=== PATIENT | male | born 1945 | race Caucasian/White ===

== ENCOUNTER → 2016-10-28 | Outpatient (CLI) | payer MEDICARE, OTHER | LOC: RT 14:14 | PROVIDERS: ATTEND Nurse Practitioner Family | DX: J43.9 Emphysema, unspecified (principal); J61 Pneumoconiosis due to asbestos and other mineral fibers; R06.00 Dyspnea, unspecified; J30.2 Other seasonal allergic rhinitis; Z87.891 Personal history of nicotine dependence ==

== ENCOUNTER → 2017-08-29 | Outpatient (CLI) | payer MEDICARE, OTHER ==
--- NOTE | 2017-08-29 13:55 | Diagnostic Imaging Report ---
PROCEDURE: CT chest without contrast. TECHNIQUE: Multiple contiguous axial images were obtained through the chest without the use of intravenous contrast. INDICATION: Cough with productive sputum x1.5 month. FINDINGS: Median sternotomy changes are noted. The lungs are well aerated. There is mild interstitial prominence noted, predominantly in the lower lobes with mild basilar dependent atelectasis. There is a cystic bulla in the right upper lobe measuring 2 cm. No evidence of bronchiectasis. There is dense calcific pleural change noted along the diaphragm on the left with adjacent scarring. No acute infiltrates are demonstrated. There is calcification of the aorta without evidence of aneurysm. No mediastinal or hilar adenopathy of pathologic size demonstrated. No blastic or lytic bony lesion. IMPRESSION: 1. There is mild interstitial lung disease. No evidence of bronchiectasis. There is a single cystic bleb in the right upper lobe. 2. There is pleural plaquing along the left hemidiaphragm with dense calcification. No previous studies for comparison. 3. No acute consolidated infiltrates are demonstrated. Dictated by: Dictated on workstation # [id number]
== END ==
LOC: RAD 13:28
PROVIDERS: ATTEND Nurse Practitioner Family
DX: J84.9 Interstitial pulmonary disease, unspecified (principal); J98.4 Other disorders of lung; J92.9 Pleural plaque without asbestos; J30.2 Other seasonal allergic rhinitis; Z87.891 Personal history of nicotine dependence
CPT/HCPCS: 71250

== ENCOUNTER → 2017-10-15 | Outpatient (CLI) | payer MEDICARE, OTHER | LOC: RT 14:38 | PROVIDERS: ATTEND Nurse Practitioner Family | DX: J84.9 Interstitial pulmonary disease, unspecified (principal); R06.02 Shortness of breath; J30.2 Other seasonal allergic rhinitis | CPT/HCPCS: 94761 ==

== ENCOUNTER 2017-11-04 19:58 | Outpatient (CLI) | payer MEDICARE, OTHER | END 2017-11-05 06:40 | disposition home or self-care (01) | LOC: SLEEP 19:58 | PROVIDERS: ATTEND Nurse Practitioner Family | DX: G47.30 Sleep apnea, unspecified (principal); G47.10 Hypersomnia, unspecified | CPT/HCPCS: 95810 ==

== ENCOUNTER 2018-05-25 09:03 | Outpatient (CLI) | payer MEDICARE, OTHER ==
[~2018-05-25] VITALS: Ht 180.3 cm; Wt 90.7 kg
[2018-05-25] MEDS ORDERED: FURO40TA4 PO ×2 (09:37)
[2018-05-25] MEDS ORDERED: OMG1KC PO (09:37)
[2018-05-25] MEDS ORDERED: WARF-48 PO ×2 (09:37)
[2018-05-25] MEDS ORDERED: POTA-51 PO (09:37)
[2018-05-25] MEDS ORDERED: MONT10TA24 PO (09:37)
[2018-05-25] MEDS ORDERED: METO-387 PO (09:37)
[2018-05-25] MEDS ORDERED: ASPI-586 PO (09:37)
[2018-05-25] MEDS ORDERED: MULT-1102 PO (09:37)
[2018-05-25] MEDS ORDERED: CETI10TA17 PO (09:37)
[2018-05-25] MEDS ORDERED: CYAN250010 PO (09:37)
[2018-05-26] MEDS ORDERED: PANT40TA2 PO (16:37)
== END 2018-05-25 09:39 | disposition home or self-care (01) ==
LOC: PREOP 09:03
PROVIDERS: ATTEND Surgery
DX: Z01.818 Encounter for other preprocedural examination (principal)

== ENCOUNTER 2018-05-26 10:22 | Day surgery (SDC) | payer MEDICARE, OTHER ==
[~2018-05-26] VITALS: Ht 180.3 cm; Wt 90.7 kg
[~2018-05-26 10:22] MED LIST: ASPI-586 PO; CETI10TA17 PO; CYAN250010 PO; FURO40TA4 PO; METO-387 PO; MONT10TA24 PO; MULT-1102 PO; OMG1KC PO; POTA-51 PO; WARF-48 PO
[2018-05-26] MEDS ORDERED: LACTATED RINGERS 1,000 ML IV STA (10:32)
[2018-05-26] MEDS ORDERED: LACTATED RINGERS 1,000 ML IV ONE (10:40)
[2018-05-26 11:10] VITALS: BP 125/96
--- NOTE | 2018-05-26 13:43 | Progress Note-Pre Operative ---
Pre-Operative Progress Note H&P Reviewed The H&P was reviewed, patient examined and patient has also had some dark stools. Discussed risks and benefits of having EGD performed and wishes to add this. Date Seen by Provider: May 26, 2018 Time Seen by Provider: 13:43 Date H&P Reviewed: May 26, 2018 Time H&P Reviewed: 13:43 Pre-Operative Diagnosis: melana, + cologuard test REBECA CERVANTES DO May 26, 2018 13:43
[2018-05-26] MEDS ORDERED: HURRICAINE EXT TUBE (BENZOCAINE) ONE (15:20)
[2018-05-26] MEDS ORDERED: PROPOFOL INJECTION 50 ML IV ONE (15:41)
[2018-05-26] MEDS ORDERED: HURRICAINE EXT TUBE (BENZOCAINE) XX ONE (16:00)
--- NOTE | 2018-05-26 16:36 | Progress Note-Post Operative ---
Post-Operative Progess Note Surgeon (s)/Block Press Operator (s) Surgeon REBECA CERVANTES DO Block Press Operator: na Pre-Operative Diagnosis melana, + cologuard test Post-Operative Diagnosis gastritis, small hiatal hernia, sigmoid polyp Procedure & Operative Findings Date of Procedure 05/26/18 Procedure Performed/Findings egd c biopsy, colonoscopy c hot bx polypectomy Anesthesia Type per naval designer Estimated Blood Loss Estimated blood loss (mL): none Specimens/Packing Specimens Removed body stomach and sigmoid colon polyp REBECA CERVANTES DO May 26, 2018 16:36
[2018-05-26] MEDS ORDERED: PANT40TA2 PO (16:37)
--- NOTE | 2018-05-26 16:38 | Discharge Inst-Simple/Standard ---
Discharge Inst-Standard Discharge Medications New, Converted or Re-Newed RX: Transmitted to Pharmacy Patient Instructions/Follow Up Plan of Care/Instructions/FU: 2-[address] Singh's instructions on anticoagulation. Activity as Tolerated: Yes Discharge Diet: Regular Diet REBECA CERVANTES DO May 26, 2018 16:38
[2018-05-26 16:40] VITALS: BP 113/72
[2018-05-26 17:00] VITALS: BP 147/86
[2018-05-26 17:11] VITALS: BP 147/86
--- NOTE | 2018-05-26 20:07 | OPERATIVE REPORT ---
DATE OF SERVICE: 05/26/2018 PREOPERATIVE DIAGNOSIS: Melena and positive Cologuard test. POSTOPERATIVE DIAGNOSES: Gastritis, small hiatal hernia, sigmoid colon polyp. PROCEDURES: EGD with biopsy and colonoscopy with hot biopsy polypectomy. SURGEON: Rebeca Herman DO ANESTHESIA: Per SERVICE AGENT. ESTIMATED BLOOD LOSS: None. COMPLICATIONS: None. INDICATIONS: The patient is a 73-year-old male with some dark stools recently and also with positive Cologuard test. He understands risks and benefits of procedures and wished to proceed with procedures. Consent was signed on the chart. DESCRIPTION OF PROCEDURE: The patient was taken to the endoscopy suite, placed in left lateral recumbent position. Timeout was performed. Scope was inserted in the mouth, down the esophagus, stomach and into the duodenum without difficulty. There are no polyps, masses, or ulcerations within the duodenum. Scope was then slowly retracted back into the stomach, where it was further insufflated. There are no polyps, masses or ulcerations visualized in the antrum. In the body, there was a large area of significant erythema and this area was biopsied, which was fairly friable. Scope was retroflexed just noting a small hiatal hernia. There was no other pathology noted. Scope was returned to its normal position, slowly withdrawn to the distal esophagus, which had normal appearance. No polyps, masses or ulceration. No erythematous changes. Scope was slowly retracted back until completely removed. Digital rectal exam was performed. There were no palpable polyps, masses or ulcerations. Scope was inserted into the rectum and advanced all the way to the cecum with minimal difficulty. There were no polyps, masses or ulcerations within the cecum, ascending, transverse and descending colon. Once in the sigmoid, there is a small polyp, which hot biopsy polypectomy was performed. Scope was continued to be slowly retracted back until the rectum, where it was also retroflexed just noting some hemorrhoids. Scope was returned to its normal position, slowly withdrawn until completely removed, noting no other pathology. The patient tolerated the procedure well without any complications. He was taken to the recovery room in stable condition. RECOMMENDATIONS: The patient will be started on Protonix 40 mg daily. The patient will follow up in the office in two to three weeks to discuss pathology results and see how he is doing at that time. The patient also will need a repeat colonoscopy in 5 years unless he has any issues before then, he should be seen and reevaluated at that time. Job ID: [id number] DocumentID: [id number] Dictated Date: 05/26/2018 16:44:22 Regulatory Consultant Date: 05/26/2018 20:07:33 Dictated By: REBECA HERMAN DO
== END 2018-05-26 17:10 | disposition home or self-care (01) ==
LOC: ENDO 10:22
PROVIDERS: ATTEND Surgery
DX: K63.5 Polyp of colon (principal); K29.50 Unspecified chronic gastritis without bleeding; K44.9 Diaphragmatic hernia without obstruction or gangrene; I48.91 Unspecified atrial fibrillation; I34.0 Nonrheumatic mitral (valve) insufficiency; I73.9 Peripheral vascular disease, unspecified; G47.33 Obstructive sleep apnea (adult) (pediatric); J44.9 Chronic obstructive pulmonary disease, unspecified; Z87.891 Personal history of nicotine dependence; Z79.01 Long term (current) use of anticoagulants; Z79.82 Long term (current) use of aspirin; Z79.899 Other long term (current) drug therapy
CPT/HCPCS: 88305; 88341; 88342

== ENCOUNTER → 2018-09-14 | Outpatient (CLI) | payer MEDICARE, OTHER ==
[~2018-09-14] MED LIST changes: +HOLD METFORMIN - RECEIVED CONTRAST 20 ML VIAL IV SCH; +IOHEXOL 350 MG/ML 150 ML (OMNIPAQUE 350) VIAL IV ONE; +PANT40TA2 PO
[2018-09-14 12:50] LABS: CREATININE SERUM 1.43 MG/DL (0.60-1.30)
[2018-09-14 12:58] LABS: ABG BASE EXCESS 0.1 MMOL/L (-2.5-2.5); ABG OXYGEN SATURATION 96 % (94-100); ABG PCO2 34 MMHG (35-45); ABG PH 7.45 (7.37-7.43); ABG PO2 70 MMHG (79-93)
[2018-09-14 13:00] LABS: ALLENS TEST YES-POS; INSPIRED O2 RA; PATIENT TEMP 95.6; VENTILATOR NO
--- NOTE | 2018-09-14 13:49 | Diagnostic Imaging Report ---
PROCEDURE: CT angiography of the chest with contrast. TECHNIQUE: Multiple contiguous axial images were obtained through the chest after uneventful bolus administration of intravenous contrast. 2D reconstructed CTA MIP acquisitions were also performed. Auto Exposure Controls were utilized during the CT exam to meet ALARA standards for radiation dose reduction. INDICATION: Shortness of air. COMPARISON: Correlation is made with prior noncontrast CT chest from 08/29/2017. FINDINGS: Evaluation of the pulmonary arterial system is without evidence of thromboembolism. No filling defects are seen within central, lobar, or segmental branches. The thoracic aorta is normal in caliber. No dissection is seen. No pericardial fluid is identified. There may be trace pleural fluid on the left. There are also some pleural calcifications along the posterior pleura at the base. No axillary lymphadenopathy is seen. There are some minimally prominent lymph nodes in the mediastinum and subcarinal region as well as bilateral hilar regions, stable. There are changes of median sternotomy. There is some linear scarring in the left lower lobe. No parenchymal mass or nodule is detected. The upper abdomen is unremarkable. IMPRESSION: 1. No evidence of pulmonary embolism or thoracic aortic dissection. 2. 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 There is trace pleural fluid on the left. No parenchymal mass or infiltrate is detected. Dictated by: Dictated on workstation # [id number]
== END ==
LOC: RAD 12:11
PROVIDERS: ATTEND Internal Medicine Critical Care Medicine
DX: J94.8 Other specified pleural conditions (principal); J30.2 Other seasonal allergic rhinitis; G47.33 Obstructive sleep apnea (adult) (pediatric); J84.9 Interstitial pulmonary disease, unspecified; J61 Pneumoconiosis due to asbestos and other mineral fibers; G47.10 Hypersomnia, unspecified; Z87.891 Personal history of nicotine dependence
CPT/HCPCS: 36415; 36600; 71275; 82565; 82805; 84520

== ENCOUNTER → 2018-10-15 | Outpatient (CLI) | payer MEDICARE, OTHER ==
[~2018-10-15] MED LIST changes: -HOLD METFORMIN - RECEIVED CONTRAST 20 ML VIAL IV SCH; -IOHEXOL 350 MG/ML 150 ML (OMNIPAQUE 350) VIAL IV ONE
== END ==
LOC: CARD 10:58
PROVIDERS: ATTEND Internal Medicine Interventional Cardiology
DX: I08.1 Rheumatic disorders of both mitral and tricuspid valves (principal); I48.2 Chronic atrial fibrillation
CPT/HCPCS: 93306

== ENCOUNTER → 2018-12-14 | Outpatient (CLI) | payer MEDICARE, OTHER ==
[~2018-12-14] MED LIST changes: +RT-ALBUTEROL SULF 2.5 MG/3 ML PRE-MIX VIAL INH ONE
== END ==
LOC: RT 08:01
PROVIDERS: ATTEND Nurse Practitioner Family
DX: J61 Pneumoconiosis due to asbestos and other mineral fibers (principal); Z87.891 Personal history of nicotine dependence
CPT/HCPCS: 94060; 94726; 94729

== ENCOUNTER → 2019-03-22 | Outpatient (CLI) | payer MEDICARE, OTHER ==
[~2019-03-22] MED LIST changes: -RT-ALBUTEROL SULF 2.5 MG/3 ML PRE-MIX VIAL INH ONE
== END ==
LOC: CARD 08:19
PROVIDERS: ATTEND Internal Medicine Interventional Cardiology
DX: I08.3 Combined rheumatic disorders of mitral, aortic and tricuspid valves (principal)
CPT/HCPCS: 93306

== ENCOUNTER 2020-08-31 10:52 | Outpatient (RCR) | payer MEDICARE, OTHER ==
[2020-08-24] MEDS: FERRIC CARBOXYMALTOSE INJ 750 MG in NS (IVPB) 250 ML IV SCH (11:08)
[2020-08-24 12:00] VITALS: BP 148/59
[~2020-08-31] VITALS: Ht 180.3 cm; Wt 90.7 kg
[~2020-08-31 10:52] MED LIST changes: -METO-387 PO; -MONT10TA24 PO; +MONT10TA32 PO; +MTP25TSR PO
[2020-08-31] MEDS: FERRIC CARBOXYMALTOSE INJ 750 MG in NS (IVPB) 250 ML IV SCH (11:10)
[2020-08-31 11:30] VITALS: BP 138/84
== END 2020-08-31 11:52 | disposition home or self-care (01) ==
LOC: SDC 10:52
PROVIDERS: ATTEND Nurse Practitioner Family
DX: D50.9 Iron deficiency anemia, unspecified (principal); I48.91 Unspecified atrial fibrillation; I10 Essential (primary) hypertension
CPT/HCPCS: 96365

== ENCOUNTER 2021-04-08 11:06 | Inpatient (IN) | payer MEDICARE, OTHER ==
[~2021-04-08] VITALS: Ht 180 cm; Wt 83.0 kg
[2021-04-08] MEDS ORDERED: PATIENT MAY USE OWN MEDS, ALL PO SCH (11:45)
[2021-04-08] MEDS: NS IV 1000 ML 1,000 ML IV SCH ×2 (11:45→22:44)
[2021-04-08] MEDS ORDERED: ACETAMINOPHEN 325 MG TABLET PO PRN (12:00)
[2021-04-08] MEDS ORDERED: RT-ALBUTEROL SULF 2.5 MG/3 ML PRE-MIX VIAL INH PRN (14:30)
[2021-04-08 16:00] VITALS: BP 138/61
--- NOTE | 2021-04-08 17:40 | History & Physical ---
History of Present Illness History of Present Illness Reason for visit/HPI This is a 75 year old male who is a patient of Dr. Abbott's for whom I am information assistant. 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 He was seen by Dr. Abbott about 6 days ago in the office with worsening shortness of air and weakness. He was found to be in atrial fibrillation with RVR with a heart rate in the 120s. He was started on Cardizem which he reports made him feel better. Three days ago he was seen by his urologist, Dr. Hernández, in [place] and told he was having urinary retention so he was started on self straight catheterizations. He has been using a clean catheter with each straight cath but not gloves. He presented to the emergency room at [facility] today with complaints of weakness. He was found to have a urinary tract infection with possible early infiltrate on CXR. He was given maxipime in the ER at [facility] and a request for transfer to our facility was made. I accepted the patient on behalf of Dr. Abbott and he will be admitted to the medical floor. Date of Admission Apr 08, 2021 at 14:00 Date Seen by a Provider: Apr 08, 2021 Time Seen by a Provider: 17:34 I consulted on this patient on 04/08/21 17:34 Attending Physician Matthieu Baum DO Admitting Physician Leidy Abbott MD Consult Allergies and Home Medications Allergies Coded Allergies: amiodarone (Verified Allergy, Unknown, gi upset, 05/25/18) niacin (Verified Allergy, Unknown, itching, 05/25/18) Patient Home Medication List Home Medication List Reviewed: Yes Aspirin (Aspir 81) 81 Mg Tablet., 81 MG PO DAILY, (Reported) Entered as Reported by: DARA HANSON on 05/25/18936 Cetirizine HCl (Cetirizine HCl) 10 Mg Tablet, 10 MG PO DAILY, (Reported) Entered as Reported by: DARA HANSON on 05/25/18936 Cyanocobalamin (Vitamin B-12) (Vitamin B12) 2,500 Mcg Tablet, 2,500 MCG PO DAILY, (Reported) Entered as Reported by: DARA HANSON on 05/25/18936 Furosemide (Furosemide) 40 Mg Tablet, 40 MG PO DAILY, (Reported) Entered as Reported by: DARA HANSON on 05/25/18936 Furosemide (Furosemide) 40 Mg Tablet, 80 MG PO Sa, (Reported) Entered as Reported by: DARA HANSON on 05/25/18936 Metoprolol Succinate (Metoprolol Succinate) 25 Mg Tab.er.24h, 25 MG PO DAILY, (Reported) Entered as Reported by: DARA HANSON on 05/25/18936 Montelukast Sodium (Montelukast Sodium) 10 Mg Tablet, 10 MG PO HS, (Reported) Entered as Reported by: DARA HANSON on 05/25/18936 Multivit-Min/Folic/Vit K/Lycop (Men's Multivitamin Tablet) 1 Each Tablet, 1 EACH PO DAILY, (Reported) Entered as Reported by: DARA HANSON on 05/25/18936 [place] 3 Polyunsat Fatty Acids (Fish Oil 1,000 mg Capsule) 1,000 Mg Cap, 1,000 MG PO DAILY, (Reported) Entered as Reported by: DARA HANSON on 05/25/18936 Pantoprazole Sodium (Protonix) 40 Mg Tablet.dr, 40 MG PO DAILY Prescribed by: REBECA CERVANTES on 05/26/181636 Potassium Chloride (Potassium Chloride) 20 Meq Tablet.er, 20 MEQ PO DAILY, (Reported) Entered as Reported by: DARA HANSON on 05/25/18936 Warfarin Sodium (Warfarin Sodium) 5 Mg Tablet, 5 MG PO MoTuThFrSa, (Reported) Entered as Reported by: DARA HANSON on 05/25/18936 Warfarin Sodium (Warfarin Sodium) 5 Mg Tablet, 2.5 MG PO SuWe, (Reported) Entered as Reported by: DARA HANSON on 05/25/18936 Past Fhlixro-Tmlsfi-Sbjaoo Hx Patient Social History Tobacco Use?: No Smoking Status: Former Smoker Smokeless Tobacco Frequency: Never a User Use of E-Cig and/or Vaping dev: No Substance use?: No Alcohol Use?: No Additional Alcohol Comments: Hasnt had beer for years Pt feels they are or have been: No Immunizations Up To Date Date of Influenza Vaccine: Mar 16, 2018 Tetanus Booster (TDap): Unknown Date of Pneumonia Vaccine: Mar 16, 2018 Seasonal Allergies Seasonal Allergies: Yes Current Status Advance Directives: No Communicates: Verbally Primary Language: [place] Preferred Spoken Language: [place] Is interpretation needed?: No Sensory deficits: Vision impairment Implanted or Applied Medical D: Other Past Medical History Sleep Apnea, COPD Currently Using CPAP: Yes Peripheral Vascular Cataract Review of Systems Constitutional: weakness EENTM: No see HPI, No no symptoms reported, No ear discharge, No hearing loss, No ear pain, No blurred vision, No double vision, No eye pain, No tearing, No vision loss, No dental problems, No hoarseness, No mouth pain, No mouth swelling, No epistaxis, No nose congestion, No nose pain, No throat pain, No throat swelling, No other Respiratory: cough, dyspnea on exertion, short of breath Cardiovascular: palpitations (atrial fibrillation) Gastrointestinal: No RUQ, No LUQ, No RLQ, No LLQ, No no symptoms reported, No see HPI, No abdominal pain, No constipation, No diarrhea, No dysphagia, No hematemesis, No heartburn, No jaundice, No loss of appetite, No melena, No nausea, No vomiting, No other Genitourinary: decreased output, hesitancy Musculoskeletal: muscle weakness Skin: No no symptoms reported, No see HPI, No change in color, No change in hair/nails, No dryness, No hx of skin cancer, No lesions, No lumps, No pruritus, No rash, No other Psychiatric/Neurological: Weakness Physical Exam Vital Signs Vital Signs - First Documented 04/08/21 04/08/21 15:24 15:44 Pulse 96 O2 Delivery Nasal Cannula O2 Flow Rate 2.00 Capillary Refill : Height, Weight, BMI Height: 5'11.00" Weight: 200lbs. 0.0oz. 90.238298bx; 25.00 BMI Method: General Appearance: No Apparent Distress Neck: Supple Respiratory: Lungs Clear, Decreased Breath Sounds Cardiovascular: Systolic Murmur, Gallop/S4, Irregularly Irregular Gastrointestinal: Normal Bowel Sounds, Non Tender, Soft Rectal: Deferred Back: No CVA Tenderness Extremity: Non Tender, No Calf Tenderness, No Pedal Edema Neurologic/Psychiatric: Alert, Oriented x3 Skin: Warm/Dry Assessment/Plan Assessment and Plan 1. Acute UTI in setting of urinary retention with self-catheterization--admit and will continue with cefepime since patient was given this in ER at [facility] due to both UTI and early pneumonia 2. Early Pneumonia--Cefepime as above 3. COPD with Pulmonary Fibrosis from previous asbestos exposure--started on SVNs with albuterol, will resume advair 4. Acute Respiratory Distress--on oxygen at 2L NC 5. Chronic Atrial Fibrillation with recent RVR--rate controlled, resume home meds and coumadin, monitor PT/INR 6. BPH with Urinary Retention--resume home meds, lucas catheter currently in place Admission Diagnosis Admission Status: Inpatient Order (span 2 midnights) Reason for Inpatient Admission: Will need at least 48hrs of IV abx MATTHIEU BAUM DO Apr 08, 2021 17:40
[2021-04-08] MEDS ORDERED: TIOT18CA2 IH (17:44)
[2021-04-08] MEDS ORDERED: TMSL.4C PO (17:44)
[2021-04-08] MEDS ORDERED: CHOL2400 MC (17:44)
[2021-04-08] MEDS ORDERED: FLUT1DIS26 IH (17:44)
[2021-04-08] MEDS ORDERED: FERR-84 PO (17:44)
[2021-04-08] MEDS ORDERED: FINA5TAB6 PO (17:44)
[2021-04-08] MEDS ORDERED: warFARin 3 MG (COUMADIN) TAB PO SCH (18:00)
[2021-04-08] MEDS: RT-ALBUTEROL SULF 2.5 MG/3 ML PRE-MIX VIAL INH SCH ×2 (18:39→21:14)
[2021-04-08 19:57] VITALS: BP 107/56
[2021-04-08] MEDS: CEFEPIME INJECTION 2,000 MG in WATER (STERILE) FOR INJECTION 20 ML IV SCH (20:18)
[2021-04-08] MEDS ORDERED: MONTELUKAST 10 MG (SINGULAIR) TAB PO SCH (21:00)
[2021-04-08] MEDS ORDERED: RT--FLUTICASONE/SALMETEROL 113-14 (AIRDUO RespiCLICK) IH SCH (21:00)
[2021-04-08] MEDS: TAMSULOSIN 0.4 MG (FLOMAX) CAP PO SCH (21:11)
[2021-04-08] MEDS ORDERED: MONTELUKAST 10 MG (SINGULAIR) TAB PO ONE (21:15)
[2021-04-08 23:30] VITALS: BP 111/62
[2021-04-09 04:00] VITALS: BP 110/61
[2021-04-09] MEDS: RT-ALBUTEROL SULF 2.5 MG/3 ML PRE-MIX VIAL INH SCH ×6 (04:36→21:59)
[2021-04-09] MEDS: NS IV 1000 ML 1,000 ML IV SCH ×2 (06:06→20:10)
[2021-04-09 07:02] LABS: INR 3.5 (0.8-1.4); PROTHROMBIN TIME PATIENT 35.2 SEC (12.2-14.7)
[2021-04-09 07:05] LABS: POTASSIUM 3.9 MMOL/L (3.6-5.0)
[2021-04-09 07:06] LABS: CALCIUM 8.9 MG/DL (8.5-10.1)
[2021-04-09 07:11] LABS: CREATININE SERUM 1.25 MG/DL (0.60-1.30)
[2021-04-09 07:38] VITALS: BP 132/58
[2021-04-09 07:45] LABS: HEMATOCRIT 31 % (40-54); HEMOGLOBIN 9.8 g/dL (13.3-17.7); MEAN CORPUSCULAR HEMOGLOBIN 30 pg (25-34); MEAN CORPUSCULAR HGB CONC 32 g/dL (32-36); MEAN CORPUSCULAR VOLUME 93 fL (80-99); MEAN PLATELET VOLUME 12.5 fL (9.0-12.2); PLATELET COUNT 185 10^3/uL (130-400); WHITE BLOOD COUNT 16.8 10^3/uL (4.3-11.0)
[2021-04-09] MEDS ORDERED: UMECLIDINIUM BROMIDE (INCRUSE ELLIPTA) 7'S IH SCH (08:00)
[2021-04-09] MEDS: TIOTROPIUM BROMIDE (SPIRIVA) 5'S INHALER IH SCH ×2 (08:05→08:15)
[2021-04-09] MEDS: ADVAIR DISKUS 250/50 INHALER IH SCH ×2 (08:05→18:32)
[2021-04-09] MEDS: CEFEPIME INJECTION 2,000 MG in WATER (STERILE) FOR INJECTION 20 ML IV SCH ×2 (08:22→20:10)
[2021-04-09] MEDS: FUROSEMIDE 40 MG (LASIX) TAB PO SCH (08:23)
[2021-04-09] MEDS: dilTIAZem120 MG (CARDIZEM CD) CAP PO SCH (08:23)
[2021-04-09] MEDS: PANTOPRAZOLE 40 MG (PROTONIX) TAB PO SCH (08:23)
[2021-04-09] MEDS: FINASTERIDE (PROSCAR) 5 MG TAB PO SCH (08:23)
[2021-04-09] MEDS: LORATADINE (CLARITIN) 10 MG TAB PO SCH (08:23)
[2021-04-09] MEDS: ASPIRIN E.C. 81 MG (ECOTRIN) TAB PO SCH (08:23)
--- NOTE | 2021-04-09 08:41 | Progress Note ---
Subjective Subjective Date Seen by Provider: Apr 09, 2021 Time Seen by Provider: 08:39 PT IS A 75 Y /O MALE WHO IS KNOWN TO ME FROM CLINIC. HE RECENTLY STARTED STRAIGHT CATHETERIZING, WAS NOT USING GLOVES AND SUBSEQUENTLY DEVELOPED A URINARY TRACT INFECTION. HE WAS IN THE OFFICE LAST WEEK WITH ACUTE DYSPNEA - WAS FOUND TO BE IN RATE UNCONTROLLED ATRIAL FIBRILLATION AND STARTED ON CARDIZEM AFTER CONSULTATION WITH HIS CELL COVERER - DR. PECK Objective Exam Vital Signs Vital Signs Date Time Temp Pulse Resp B/P (MAP) Pulse Ox O2 Delivery O2 Flow Rate FiO2 04/09/21 08:15 Nasal Cannula 2.00 04/09/21 08:05 95 Nasal Cannula 2.00 04/09/21 07:38 37.6 98 20 132/58 (82) 98 Nasal Cannula 2.00 04/09/21 07:00 94 04/09/21 04:00 36.1 76 18 110/61 (77) 93 NIV Bilevel 04/09/21 01:00 90 04/08/21 23:30 36.9 95 20 111/62 (78) 95 NIV Bilevel 04/08/21 21:14 95 Nasal Cannula 2.00 04/08/21 20:45 96 Nasal Cannula 2.00 04/08/21 19:57 38.2 96 20 107/56 (73) 97 Nasal Cannula 2.00 04/08/21 19:00 107 04/08/21 18:39 94 Nasal Cannula 2.00 04/08/21 16:00 37.8 106 24 138/61 (86) 96 Nasal Cannula 2.00 04/08/21 15:44 96 04/08/21 15:24 Nasal Cannula 2.00 I & O 04/09/21 06:59 Intake Total 970 ml Output Total 1100 ml Balance -130 ml General Appearance: No Apparent Distress Neck: Supple Respiratory: Lungs Clear, Decreased Breath Sounds Cardiovascular: Systolic Murmur, Gallop/S4, Irregularly Irregular Gastrointestinal: Normal Bowel Sounds, Non Tender, Soft Rectal: Deferred Back: No CVA Tenderness Extremity: Non Tender, No Calf Tenderness, No Pedal Edema Neurologic/Psychiatric: Alert, Oriented x3 Skin: Warm/Dry Results Lab Laboratory Tests 04/09/21 06:30: White Blood Count 16.8H, Red Blood Count 3.32L, Hemoglobin 9.8L, Hematocrit 31L, Mean Corpuscular Volume 93, Mean Corpuscular Hemoglobin 30, Mean Corpuscular Hemoglobin Concent 32, Red Cell Distribution Width 14.7H, Platelet Count 185, Mean Platelet Volume 12.5H, Sodium Level 136, Potassium Level 3.9, Chloride Level 106, Carbon Dioxide Level 19L, Anion Gap 11, Blood Urea Nitrogen 16, Cre atinine 1.25, Estimat Glomerular Filtration Rate 56, BUN/Creatinine Ratio 13, Glucose Level 115H, Calcium Level 8.9 04/09/21 06:36: Prothrombin Time 35.2H, INR Comment 3.5H RODOLFO VÁZQUEZ MD Apr 09, 2021 08:41
[2021-04-09] MEDS ORDERED: ASPI81TA16 PO (10:02)
[2021-04-09] MEDS ORDERED: VITA-189 PO (11:17)
[2021-04-09] MEDS ORDERED: FURO40TA4 PO (11:17)
[2021-04-09] MEDS ORDERED: POTA-51 PO (11:21)
[2021-04-09] MEDS ORDERED: PANT40TA52 PO (11:26)
[2021-04-09] MEDS ORDERED: FERR-84 PO (11:28)
[2021-04-09] MEDS ORDERED: CHOL10007 PO (11:31)
[2021-04-09] MEDS ORDERED: FINA5TAB6 PO (11:32)
[2021-04-09] MEDS ORDERED: TMSL.4C PO (11:32)
[2021-04-09] MEDS ORDERED: DILT120C85 PO (11:33)
[2021-04-09] MEDS ORDERED: FLUT9.9S NS (11:35)
[2021-04-09] MEDS ORDERED: FLUT1DIS26 IH (11:37)
[2021-04-09] MEDS ORDERED: TIOT18CA2 IH (11:49)
[2021-04-09 12:00] VITALS: BP 124/57
[2021-04-09 15:50] VITALS: BP 116/54
[2021-04-09] MEDS: TAMSULOSIN 0.4 MG (FLOMAX) CAP PO SCH (17:46)
[2021-04-09] MEDS ORDERED: warFARin 3 MG (COUMADIN) TAB PO SCH (18:00)
[2021-04-09 19:55] VITALS: BP 127/58
[2021-04-09] MEDS ORDERED: MONTELUKAST 10 MG (SINGULAIR) TAB PO SCH (21:00)
[2021-04-10] VITALS: BP_SYST 121; BP_SYST 127; BP_DIAS 58; BP_DIAS 60
[2021-04-10] MEDS: RT-ALBUTEROL SULF 2.5 MG/3 ML PRE-MIX VIAL INH SCH ×3 (02:34→10:30)
[2021-04-10 04:07] VITALS: BP 125/65
[2021-04-10 04:57] LABS: HEMATOCRIT 28 % (40-54); HEMOGLOBIN 9.1 g/dL (13.3-17.7); MEAN CORPUSCULAR HEMOGLOBIN 29 pg (25-34); MEAN CORPUSCULAR HGB CONC 32 g/dL (32-36); MEAN CORPUSCULAR VOLUME 90 fL (80-99); PLATELET COUNT 172 10^3/uL (130-400); WHITE BLOOD COUNT 10.3 10^3/uL (4.3-11.0)
[2021-04-10 05:15] LABS: INR 2.7 (0.8-1.4); POTASSIUM 3.6 MMOL/L (3.6-5.0); PROTHROMBIN TIME PATIENT 29.1 SEC (12.2-14.7)
[2021-04-10 05:16] LABS: CALCIUM 8.9 MG/DL (8.5-10.1)
[2021-04-10 05:20] LABS: CREATININE SERUM 1.17 MG/DL (0.60-1.30)
[2021-04-10] MEDS ORDERED: KCL 20 MEQ TAB (K-DUR) PO SCH (07:00)
[2021-04-10] MEDS ORDERED: MULTIVIT W/MINERALS TAB (THERAGRAN M) PO SCH (07:00)
[2021-04-10] MEDS ORDERED: CYANOCOBALAMIN 1,000 MCG (VITAMIN B-12) TABLET PO SCH (07:00)
[2021-04-10] MEDS: ADVAIR DISKUS 250/50 INHALER IH SCH (07:01)
[2021-04-10] MEDS: TIOTROPIUM BROMIDE (SPIRIVA) 5'S INHALER IH SCH (07:01)
[2021-04-10 08:01] VITALS: BP 130/60
[2021-04-10] MEDS: LORATADINE (CLARITIN) 10 MG TAB PO SCH (08:19)
[2021-04-10] MEDS: CEFEPIME INJECTION 2,000 MG in WATER (STERILE) FOR INJECTION 20 ML IV SCH (08:19)
[2021-04-10] MEDS: FUROSEMIDE 40 MG (LASIX) TAB PO SCH (08:19)
[2021-04-10] MEDS: dilTIAZem120 MG (CARDIZEM CD) CAP PO SCH (08:19)
[2021-04-10] MEDS: ASPIRIN E.C. 81 MG (ECOTRIN) TAB PO SCH (08:19)
[2021-04-10] MEDS: PANTOPRAZOLE 40 MG (PROTONIX) TAB PO SCH (08:19)
[2021-04-10] MEDS: FINASTERIDE (PROSCAR) 5 MG TAB PO SCH (08:19)
--- NOTE | 2021-04-10 10:29 | Discharge Summary ---
Diagnosis/Chief Complaint Date of Admission Apr 08, 2021 at 14:00 Date of Discharge Discharge Summary Discharge Physical Examination Allergies: Coded Allergies: amiodarone (Verified Allergy, Unknown, gi upset, 05/25/18) niacin (Verified Allergy, Unknown, itching, 05/25/18) Vitals & I&Os Vital Signs Date Time Temp Pulse Resp B/P (MAP) Pulse Ox O2 Delivery O2 Flow Rate FiO2 04/10/21 08:25 94 Room Air 04/10/21 08:01 36.6 111 20 130/60 (83) 04/10/21 02:34 2.00 Hospital Course Pending Labs Laboratory Tests 04/10/21 04:39: White Blood Count 10.3, Red Blood Count 3.14, Hemoglobin 9.1, Hematocrit 28, Mean Corpuscular Volume 90, Mean Corpuscular Hemoglobin 29, Mean Corpuscular Hemoglobin Concent 32, Red Cell Distribution Width 14.7, Platelet Count 172, Mean Platelet Volume 12.0, Prothrombin Time 29.1, INR Comment 2.7, Sodium Level 138, Potassium Level 3.6, Chloride Level 108, Carbon Dioxide Level 19, Anion Gap 11, Blood Urea Nitrogen 19, Creatinine 1.17, Estimat Glomerular Filtration Rate 61, BUN/Creatinine Ratio 16, Glucose Level 122, Calcium Level 8.9 Discharge Instructions to patient/family Please see electronic discharge instructions given to patient. Discharge Medications Reviewed and agree with Discharge Medication list on patient's Discharge Instruction sheet RODOLFO VÁZQUEZ MD Apr 10, 2021 10:29
[2021-04-10] MEDS ORDERED: WARF-48 PO (10:35)
[2021-04-10] MEDS ORDERED: SULF1TAB38 PO (10:35)
[2021-04-10] MEDS ORDERED: WARF3TAB7 PO (10:35)
--- NOTE | 2021-04-10 10:38 | Discharge Inst-Simple/Standard ---
Discharge Inst-Standard Reconcile Patient Problems Problems Reviewed?: Yes Discharge Medications New, Converted or Re-Newed RX: Transmitted to Pharmacy Patient Instructions/Follow Up Plan of Care/Instructions/FU: 1 [facility] (PT ALREADY HAS A FOLLOW UP SCHEDULED) CALL DR. TAVARES OFFICE FOR APPT IF NOT ONE IN THE NEXT [address] PECK'S OFFICE FOR APPT IN THE NEXT 1-2 WEEKS Activity as Tolerated: Yes Discharge Diet: Regular Diet Health Concerns: URINARY TRACT INFECTION ATRIAL FIBRILLATION - CHRONIC - BUT UNCONTROLLED RATE Return to The Hospital For: CHEST PAIN, SHORTNESS OF BREATH WORSE THAN USUAL, DIZZINESS, INABILITY TO SELF CATHETERIZE, OR OTHER LIFE THREATENING ILLNESS OR INJURY Other Inst to Patient LABS AT [facility] TO BE DONE ON FRIDAY - PT/INR Medication List: Active Scripts Active Bactrim Ds Tablet (Sulfamethoxazole/Trimethoprim) 1 Each Tablet 1 Each PO BID X 5 MORE DAYS Jantoven (Warfarin Sodium) 3 Mg Tablet 3 Mg PO DAILY@18 TO BE TAKEN DIRECTED WHILE ON ANTIBIOTICS, TO ADJUST DOSE BASED ON INR Warfarin Sodium 5 Mg Tablet 5 Mg PO HS ON HOLD UNTIL DOCTOR DIRECTS TO RESTART WHEN PT OFF OF ANTIBIOTICS Reported Spiriva (Tiotropium [place]) 1 Inh Aerp 1 Inh IH DAILY Advair 250-50 Diskus (Fluticasone/Salmeterol) 1 Each Blst.w.dev 1 Each IH BID Flonase Allergy Relief (Fluticasone Propionate) 9.9 Ml [place].susp 2 [place] NS HS Diltiazem ER (Diltiazem HCl) 120 Mg Capsule.er 120 Mg PO DAILY Finasteride 5 Mg Tablet 5 Mg PO DAILY Flomax (Tamsulosin HCl) 0.4 Mg Cap 0.4 Mg PO HS Vitamin D3 (Cholecalciferol (Vitamin D3)) 25 Mcg Capsule 25 Mcg PO DAILY Iron (Ferrous Sulfate) 325 Mg Tablet 325 Mg PO TWICE WEEKLY Pantoprazole Sodium 40 Mg Tablet.dr 40 Mg PO HS Potassium Chloride 20 Meq Tablet.er 10 Meq PO SUN,WED TAKES 1/2 TAB Furosemide 40 Mg Tablet 20 Mg PO SUN,WED TAKES 1/2 TAB B Complex (Vitamin B Complex) 1 Each Tablet 1 Each PO DAILY Low Dose Aspirin EC (Aspirin) 81 Mg Tablet.dr 81 Mg PO DAILY Men's Multivitamin Tablet (Multivit-Min/Folic/Vit K/Lycop) 1 Each Tablet 1 Each PO DAILY Potassium Chloride 20 Meq Tablet.er 20 Meq PO ,,,FR,SA Cetirizine HCl 10 Mg Tablet 10 Mg PO DAILY Montelukast Sodium 10 Mg Tablet 10 Mg PO HS Furosemide 40 Mg Tablet 40 Mg PO ,,,,SA Lab results: Laboratory Tests Test 04/10/21 04:39 Range/Units White Blood Count 10.3 4.3-11.0 10^3/uL Red Blood Count 3.14 L 4.30-5.52 10^6/uL Hemoglobin 9.1 L 13.3-17.7 g/dL Hematocrit 28 L 40-54 % Mean Corpuscular Volume 90 80-99 fL Mean Corpuscular Hemoglobin 29 25-34 pg Mean Corpuscular Hemoglobin Concent 32 32-36 g/dL Red Cell Distribution Width 14.7 H 10.0-14.5 % Platelet Count 172 130-400 10^3/uL Mean Platelet Volume 12.0 9.0-12.2 fL Prothrombin Time 29.1 H 12.2-14.7 SEC INR Comment 2.7 H 0.8-1.4 Sodium Level 138 135-145 MMOL/L Potassium Level 3.6 3.6-5.0 MMOL/L Chloride Level 108 H 98-107 MMOL/L Carbon Dioxide Level 19 L 21-32 MMOL/L Anion Gap 11 5-14 MMOL/L Blood Urea Nitrogen 19 H 7-18 MG/DL Creatinine 1.17 0.60-1.30 MG/DL Estimat Glomerular Filtration Rate 61 BUN/Creatinine Ratio 16 Glucose Level 122 H 70-105 MG/DL Calcium Level 8.9 8.5-10.1 MG/DL My orders: Orders - RODOLFO VÁZQUEZ MD Diltiazem Tablet (Cardizem Tablet) (04/10/21 10:30) Diltiazem Tablet (Cardizem Tablet) (04/10/21 10:30) Attending Discharge Inpt/Inobs (04/10/21 10:30) RODOLFO VÁZQUEZ MD Apr 10, 2021 10:38
[2021-04-10 11:00] VITALS: BP 130/60
[2021-04-10 11:43] VITALS: BP 139/79
[2021-04-10] MEDS: NS IV 1000 ML 1,000 ML IV SCH (11:55)
--- NOTE | 2021-04-10 11:56 | Progress Note ---
Subjective Subjective Date Seen by Provider: Apr 09, 2021 Time Seen by Provider: 08:45 PT IS A 75 Y /O MALE WHO IS KNOWN TO ME FROM CLINIC. HE RECENTLY STARTED STRAIGHT CATHETERIZING, WAS NOT USING GLOVES AND SUBSEQUENTLY DEVELOPED A URINARY TRACT INFECTION. HE WAS IN THE OFFICE LAST WEEK WITH ACUTE DYSPNEA - WAS FOUND TO BE IN RATE UNCONTROLLED ATRIAL FIBRILLATION AND STARTED ON CARDIZEM AFTER CONSULTATION WITH HIS GENERAL ADJUSTER - DR. PECK Review of Systems General: No Chills, No Fatigue, No Malaise HEENT: No Dysphasia Pulmonary: Dyspnea, Cough (INTERMITTENT) Cardiovascular: Palpitations Gastrointestinal: No: Nausea, Abdominal Pain Genitourinary: Retention Musculoskeletal: No: back pain Neurological: Weakness; No: Confusion Objective Exam Vital Signs Vital Signs Date Time Temp Pulse Resp B/P (MAP) Pulse Ox O2 Delivery O2 Flow Rate FiO2 04/10/21 11:43 36.4 119 19 139/79 (99) 95 Room Air 04/10/21 10:30 100 Room Air 04/10/21 08:25 94 Room Air 04/10/21 08:01 36.6 111 20 130/60 (83) 94 Room Air 04/10/21 07:00 110 04/10/21 06:53 100 Room Air 04/10/21 04:07 36.4 98 20 125/65 (85) 97 NIV CPAP 04/10/21 02:34 94 Nasal Cannula 2.00 04/10/21 01:01 96 04/10/21 00:00 36.7 95 20 121/60 (80) 98 NIV CPAP 04/09/21 21:59 93 Nasal Cannula 2.00 04/09/21 20:00 95 Nasal Cannula 2.00 04/09/21 19:55 36.8 106 24 127/58 (81) 96 Nasal Cannula 2.00 04/09/21 19:02 111 04/09/21 18:32 95 Nasal Cannula 2.00 04/09/21 15:50 37.6 104 22 116/54 (74) 97 Nasal Cannula 2.00 04/09/21 13:00 93 04/09/21 12:00 36.8 103 22 124/57 (79) 96 Nasal Cannula 2.00 I & O 04/10/21 07:00 Intake Total 2350 ml Output Total 1900 ml Balance 450 ml General Appearance: No Apparent Distress HEENT: PERRL/EOMI, Pharynx Normal Neck: Supple Respiratory: Lungs Clear, Decreased Breath Sounds Cardiovascular: Systolic Murmur, Gallop/S4, Irregularly Irregular Gastrointestinal: Normal Bowel Sounds, Non Tender, Soft Rectal: Deferred Back: No CVA Tenderness Extremity: Non Tender, No Calf Tenderness, No Pedal Edema Neurologic/Psychiatric: Alert, Oriented x3 Skin: Warm/Dry Results Lab Laboratory Tests 04/10/21 04:39: White Blood Count 10.3, Red Blood Count 3.14L, Hemoglobin 9.1L, Hematocrit 28L, Mean Corpuscular Volume 90, Mean Corpuscular Hemoglobin 29, Mean Corpuscular Hemoglobin Concent 32, Red Cell Distribution Width 14.7H, Platelet Count 172, Mean Platelet Volume 12.0, Prothrombin Time 29.1H, INR Comment 2.7H, Sodium Level 138, Potassium Level 3.6, Chloride Level 108H, Carbon Dioxide Level 19L, Anion Gap 11, Blood Urea Nitrogen 19H, Creatinine 1.17, Estimat Glomerular Filtration Rate 61, BUN/Creatinine Ratio 16, Glucose Level 122H, Calcium Level 8.9 RODOLFO VÁZQUEZ MD Apr 10, 2021 11:56
[2021-04-10] MEDS ORDERED: warFARin 3 MG (COUMADIN) TAB PO SCH (18:00)
== END 2021-04-10 12:05 | disposition home or self-care (01) | DRG 689 ==
LOC: 4TH 14:00
PROVIDERS: ADMIT Family Medicine; ATTEND Family Medicine
DX: N39.0 Urinary tract infection, site not specified (principal); J18.9 Pneumonia, unspecified organism; J44.0 Chronic obstructive pulmonary disease with (acute) lower respiratory infection; I48.20 Chronic atrial fibrillation, unspecified; J84.10 Pulmonary fibrosis, unspecified; R06.03 Acute respiratory distress; N40.1 Benign prostatic hyperplasia with lower urinary tract symptoms; R33.8 Other retention of urine; H54.7 Unspecified visual loss; Z87.891 Personal history of nicotine dependence; Z79.01 Long term (current) use of anticoagulants; Z79.899 Other long term (current) drug therapy; Z79.82 Long term (current) use of aspirin; Z88.8 Allergy status to other drugs, medicaments and biological substances
CPT/HCPCS: 36415; 80048; 85027; 85610; 94640; 94760

== ENCOUNTER → 2021-10-09 | Outpatient (CLI) | payer MEDICARE, OTHER ==
[~2021-10-09] MED LIST changes: +ASPI81TA16 PO; +CATHETER FLUSH 10 ML SYR IVP PRN; +CHOL10007 PO; +CHOL2400 MC; +DILT120C85 PO; +FERR-84 PO; +FINA5TAB6 PO; +FLUT1DIS26 IH; +FLUT9.9S NS; +MONT-40 PO; -MONT10TA32 PO; +PANT40TA52 PO; +SULF1TAB38 PO; +TIOT18CA2 IH; +TMSL.4C PO; +VITA-189 PO; +WARF3TAB7 PO
--- NOTE | 2021-10-09 12:59 | Diagnostic Imaging Report ---
LUNG SCAN PERFUSION INDICATION: Pulmonary hypertension COMPARISON: None available. TECHNIQUE: Multi-projectional scintigraphic imaging was performed after the intravenous administration of 5.49 mCi of technetium 99 MAA. FINDINGS: Heterogeneous perfusion is present throughout both lungs. There are no peripheral segmental filling defects that would suggest pulmonary emboli. IMPRESSION: Normal VQ scan without features of chronic thromboembolic disease. Dictated by: Dictated on workstation # [id number]
== END ==
LOC: CARD 09:35
PROVIDERS: ATTEND Internal Medicine Critical Care Medicine
DX: I27.20 Pulmonary hypertension, unspecified (principal); J44.9 Chronic obstructive pulmonary disease, unspecified; G47.33 Obstructive sleep apnea (adult) (pediatric)
CPT/HCPCS: 78580; A9540

== ENCOUNTER → 2022-07-04 | Outpatient (CLI) | payer MEDICARE, OTHER ==
[~2022-07-04] MED LIST changes: -CATHETER FLUSH 10 ML SYR IVP PRN
--- NOTE | 2022-07-04 16:30 | Diagnostic Imaging Report ---
INDICATION: Pulmonary hypertension, COPD and shortness of air. TECHNIQUE: Patient was administered 5.4 mCi technetium 99m MAA intravenously and imaging over the chest was performed in multiple obliquities. FINDINGS: There is fairly homogeneous perfusion of both lungs. No pleural-based perfusion defects are seen. IMPRESSION: Normal perfusion lung scan. Dictated by: Dictated on workstation # [id number]
== END ==
LOC: CARD 10:35
PROVIDERS: ATTEND Internal Medicine Critical Care Medicine
DX: I27.20 Pulmonary hypertension, unspecified (principal); G47.33 Obstructive sleep apnea (adult) (pediatric); J44.9 Chronic obstructive pulmonary disease, unspecified
CPT/HCPCS: 78580; A9540